=== PATIENT | male | born 1985 | race American Indian/Alaskan Native ===

== ENCOUNTER 2018-05-15 08:00 | Emergency (ER) | payer OTHER ==
[2018-05-15 08:22] VITALS: RESP 18; TEMP 98.6; O2SAT 100
[2018-05-15] MEDS ORDERED: Naproxen 550 mg Tab PO STA (08:33)
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
[2018-05-15] MEDS ORDERED: Naproxen 550 mg Tab PO ONE (08:49)
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
[2018-05-15 09:58] VITALS: BP 116/73; PULSE 72
== END 2018-05-15 09:57 | disposition home or self-care (01) ==
LOC: C.ER 08:00
DX: S00.83XA Contusion of other part of head, initial encounter (principal); V89.2XXA Person injured in unspecified motor-vehicle accident, traffic, initial encounter